=== PATIENT | female | born 1950 | race Caucasian/White ===

== ENCOUNTER 2017-10-03 08:00 | Outpatient (CLI) | payer MEDICARE | END 2017-10-03 08:01 | disposition home or self-care (01) | LOC: BICULT 08:00 | PROVIDERS: ATTEND Family Medicine | DX: E04.1 Nontoxic single thyroid nodule (principal) | CPT/HCPCS: 76536 ==

== ENCOUNTER 2018-01-30 14:28 | Outpatient (CLI) | payer MEDICARE | END 2018-01-30 14:29 | disposition home or self-care (01) | LOC: BICMAMMO 14:28 | PROVIDERS: ATTEND Family Medicine | DX: Z12.31 Encounter for screening mammogram for malignant neoplasm of breast (principal); R92.1 Mammographic calcification found on diagnostic imaging of breast; Z80.3 Family history of malignant neoplasm of breast | CPT/HCPCS: 77063; 77067 ==

== ENCOUNTER 2018-02-03 06:54 | Day surgery (SDC) | payer MEDICARE ==
[2018-02-02 14:27] VITALS: BMI 26.2
--- NOTE | 2018-02-02 23:45 | HP ---
SHORT STAY HISTORY AND PHYSICAL DATE OF ADMISSION: 02/03/2018 HISTORY OF PRESENT ILLNESS: This is a 67-year-old female, who comes for a colonoscopy for colon [facility] [place] [facility] screening. The patient has no specific GI symptoms. She has no family history of colon cancer. ALLERGIES: NIACIN. SOCIAL HISTORY: The patient does not smoke, but drinks alcohol socially. MEDICAL ILLNESSES: 1. Chronic anxiety - panic attacks. 2. Hyperlipidemia. 3. Hypothyroidism. 4. Osteoarthritis. 5. Osteoporosis. 6. Left ovarian cyst removal. PHYSICAL EXAMINATION: VITAL SIGNS: Pulse is 70, blood pressure 130/80. HEENT: Conjunctivae clear. CARDIOVASCULAR SYSTEM AND LUNGS: Within normal limits. ABDOMEN: Soft to palpate. No organomegaly. No tenderness. No masses. ADMITTING DIAGNOSIS: Colon cancer screening. PLAN: Colonoscopy.
--- NOTE | 2018-02-03 11:14 | OP ---
DATE OF PROCEDURE: 02/03/2018 SURGEON: Frandy Davies M.D. OPERATIVE PROCEDURE: Colonoscopy with biopsy. PREOPERATIVE DIAGNOSIS: The patient is a 67-year-old female comes for a colonoscopy for co candido cancer screening. POSTOPERATIVE DIAGNOSES: 1. Mild sigmoid diverticular disease. 2. Sessile polyp descending colon. 3. Small hemorrhoids. 4. Markedly tortuous, redundant colon. PROCEDURE NOTE: The patient was placed on her left lateral position and was given sedation by Anesth esia Department. A rectal exam was done before the scope was advanced into the rectum. No lesion fe lt on rectal exam. A Pentax video colonoscope was introduced into the rectum and advanced all the wa y into the cecum. The colon was very tortuous and redundant. Abdominal compression was used to adva nce the scope all the way to the cecum. The prep was excellent. The mucosa appeared normal. The ap pendiceal orifice, ileocecal valve, no pathology seen. The ascending colon, hepatic flexure, no path ology seen. The transverse colon, no lesions. She had small sessile polyps appeared to be hyperplas tic over the descending colon, these were biopsied. The sigmoid colon showed mild diverticular diseas e. Rectum showed small hemorrhoids. DISCHARGE PLANNING: This is a 67-year-old female who came for a colonoscopy for colon canc er screening. She underwent biopsy. DISCHARGE RECOMMENDATIONS: 1. The patient advised to call me if she develops abdominal pain, hematochezia. 2. In the absence of any of these symptoms she is to come back to me in 2 weeks.
[2018-02-03] MEDS ORDERED: Lidocaine 1% PF 5 ML VIAL ONE (14:07)
[2018-02-03] MEDS ORDERED: PROPOFOL 200 MG/20 ML VIAL ONE (14:07)
== END 2018-02-03 10:20 | disposition home or self-care (01) ==
LOC: SDC 06:54
PROVIDERS: ATTEND Internal Medicine Gastroenterology
PROC: 0DBM8ZX Excision of Descending Colon, Via Natural or Artificial Opening Endoscopic, Diagnostic (ICD-10-PCS; principal; 2018-02-03)
DX: Z12.11 Encounter for screening for malignant neoplasm of colon (principal); K63.5 Polyp of colon; K57.30 Diverticulosis of large intestine without perforation or abscess without bleeding; K64.9 Unspecified hemorrhoids; F41.0 Panic disorder [episodic paroxysmal anxiety]; E78.5 Hyperlipidemia, unspecified; E03.9 Hypothyroidism, unspecified; M19.90 Unspecified osteoarthritis, unspecified site; M81.0 Age-related osteoporosis without current pathological fracture; Z88.8 Allergy status to other drugs, medicaments and biological substances
CPT/HCPCS: 88305; J2001; J2704

== ENCOUNTER 2019-10-08 09:36 | Outpatient (CLI) | payer MEDICARE ==
--- NOTE | 2019-10-08 10:53 | RAD ---
Exam:AP weightbearing view of the left and right knee, lateral right knee radiograph, lateral left kn ee radiograph HISTORY: Chronic pain, x6 months COMPARISON: None FINDINGS: Right knee: Moderate loss of the joint space height in the medial compartment. No fracture or malalignment. No joint effusion Left knee: Preserved joint spaces. No fracture or malalignment. No joint effusion. IMPRESSION: Moderate loss of joint space height in the medial compartment right knee.
== END 2019-10-08 09:37 | disposition home or self-care (01) ==
LOC: BICRAD 09:36
PROVIDERS: ATTEND Family Medicine
DX: G89.29 Other chronic pain (principal)
CPT/HCPCS: 73565

== ENCOUNTER 2019-10-20 09:51 | Outpatient (CLI) | payer MEDICARE ==
--- NOTE | 2019-10-20 10:40 | MMO ---
Bilateral MAMMO Bilat Screen [facility]. CLINICAL HISTORY: Patient is 69 years old and is seen for screening. The patient has the following family history of breast cancer: cousin female and cousin female. The patient has no personal history of cancer. VIEWS: The views performed were: bilateral craniocaudal with tomosynthesis and bilateral mediolateral oblique with tomosynthesis. FILMS COMPARED: The present examination has been compared to prior imaging studies performed at [facility] on 05/06/2012, 07/01/2014, 12/26/2016 and 01/30/2018. This study has been interpreted with the assistance of computer-aided detection. MAMMOGRAM FINDINGS: There are scattered fibroglandular densities. There are stable benign appearing calcifications seen in both breasts. There are no suspicious masses, suspicious calcifications, or new areas of architectural distortion. IMPRESSION: THERE IS NO MAMMOGRAPHIC EVIDENCE OF MALIGNANCY. A ROUTINE FOLLOW-UP MAMMOGRAM IN 1 YEAR IS RECOMMENDED. THE RESULTS OF THIS EXAM WERE SENT TO THE PATIENT. ACR BI-RADS Category 2 - Benign finding MAMMOGRAPHY NOTE: 1. A negative mammogram report should not delay a biopsy if a dominant of clinically suspicious mass is present. 2. Approximately 10% to 15% of breast cancers are not detected by mammography. 3. Adenosis and dense breasts may obscure an underlying neoplasm. Reported by: RAIN STYLES MD Electonically Signed: [id number]
== END 2019-10-20 09:52 | disposition home or self-care (01) ==
LOC: BICMAMMO 09:51
PROVIDERS: ATTEND Family Medicine
DX: Z12.31 Encounter for screening mammogram for malignant neoplasm of breast (principal); Z80.3 Family history of malignant neoplasm of breast
CPT/HCPCS: 77063; 77067

== ENCOUNTER 2022-05-01 08:31 | Outpatient (CLI) | payer MEDICARE | END 2022-05-01 08:32 | disposition home or self-care (01) | LOC: BICMAMMO 08:31 | PROVIDERS: ATTEND Family Medicine | DX: Z12.31 Encounter for screening mammogram for malignant neoplasm of breast (principal); Z13.820 Encounter for screening for osteoporosis; N95.9 Unspecified menopausal and perimenopausal disorder; Z80.3 Family history of malignant neoplasm of breast | CPT/HCPCS: 77063; 77067; 77080 ==

== ENCOUNTER 2022-06-19 15:42 | Observation (INO) | payer MEDICARE ==
[2022-06-19] MEDS ORDERED: diphenhydrAMINE 50 MG/ML VIAL ONE (16:54)
[2022-06-19] MEDS ORDERED: Famotidine/PF 20 mg/2ml Vial ONE (16:54)
[2022-06-19 17:04] LABS: #Eosinphils 0.3 thou/uL (0.0-0.7); #Lymphocytes 1.2 thou/uL (1.20-3.40); #Monocytes 0.2 thou/uL (0.11-0.59); #Neutrophils 3.9 thou/uL (1.40-6.50); %Basophils 0.4 % (0.0-1.0); %Lymphocytes 21.2 % (21.0-51.0); %Monocytes 4.2 % (0.0-10.0); %Neutrophils 69.3 % (42.0-75.0); Hemoglobin 13.8 g/dL (12.0-16.0); Mean Corpuscular HGB CONC 32.4 g/dL (32.0-36.0); Mean Corpuscular Hemoglobin 31.8 pg (27.0-31.0); Mean Corpuscular Volume 98.2 fL (78.0-98.0); Mean Platelet Volume 9.2 fL (7.4-10.4); Platelet Count 134 thou/uL (130-400); RBC Distribution Width 12.3 % (11.5-14.5); Red Blood Cell (RBC) Count 4.35 mill/uL (4.20-5.40); White Blood Cell (WBC) Count 5.6 thou/uL (4.8-10.8)
[2022-06-19 17:24] LABS: Bilirubin Negative (Negative); Blood, Urine Negative (Negative); Clarity Clear (Clear); Glucose, Urine (Dipstick) Normal (Negative); Ketone, Urine Negative (Negative); Leukocyte Negative Leu/uL (Negative); Nitrite Negative (Negative); Protein, Urine (Dipstick) Negative (Neg-Trace); Specific Gravity, Urine 1.011 (1.002-1.036); Urobilinogen Normal mg/dL (Less than 2)
[2022-06-19 17:26] LABS: ALT (SGPT) 29 U/L (8-55); AST (SGOT) 26 U/L (5-34); Albumin 4.2 g/dL (3.4-4.8); Alkaline Phosphatase 86 U/L (40-110); Anion Gap 13 mmol/L (10-20); BUN (Urea Nitrogen) 19 mg/dL (9.8-20.1); Bilirubin, Total 0.7 mg/dL (0.2-1.2); Calc. Creatinine Clearance 0 mL/min (70-130); Calcium 9.7 mg/dL (7.8-10.44); Carbon Dioxide 24 mmol/L (23-31); Chloride 97 mmol/L (98-107); Estimated GFR 52; Globulin 3.3 g/dL (2.4-3.5); Glucose 115 mg/dL (83-110); Potassium 3.8 mmol/L (3.5-5.1); Protein, Total 7.5 g/dL (5.8-8.1); Sodium 130 mmol/L (136-145)
[2022-06-19] MEDS ORDERED: Dexamethasone 10 MG/ML VIAL ONE (17:43)
[2022-06-19] MEDS ORDERED: Ondansetron PF 4 MG/2 ML Vial IVP PRN (18:19)
[2022-06-19] MEDS ORDERED: Bisacodyl 5 MG TAB PO PRN (18:19)
[2022-06-19] MEDS ORDERED: Ondansetron ODT 4 MG TAB PO PRN (18:19)
[2022-06-19] MEDS ORDERED: Senokot S 8.6-50 MG TAB PO PRN (18:19)
[2022-06-19 19:36] VITALS: BMI 27.8
[2022-06-19] MEDS: diphenhydrAMINE 50 MG in Sodium Chloride 0.9% 50 ML IVPB SCH (20:52)
[2022-06-19] MEDS: Sodium Chloride 0.9% 1,000 ML IV SCH (20:53)
[2022-06-19] MEDS: Dexamethasone 10 MG in Sodium Chloride 0.9% 50 ML IVPB SCH (20:53)
[2022-06-19] MEDS: Famotidine/PF 20 mg/2ml Vial SLOW IVP SCH (20:54)
[2022-06-19] MEDS ORDERED: Acetaminophen 500 MG TAB PO PRN (21:09)
[2022-06-20 00:19] LABS: SARS-CoV-2 NAA Rapid Test Not Detected (NotDetected)
[2022-06-20 05:58] LABS: #Lymphocytes 0.6 thou/uL (1.20-3.40); %Basophils 0.7 % (0.0-1.0); %Eosinophils 0.5 % (0.0-10.0); %Lymphocytes 9.8 % (21.0-51.0); %Monocytes 0.7 % (0.0-10.0); %Neutrophils 88.3 % (42.0-75.0); Hemoglobin 12.8 g/dL (12.0-16.0); Mean Corpuscular HGB CONC 32.1 g/dL (32.0-36.0); Mean Corpuscular Hemoglobin 31.6 pg (27.0-31.0); Mean Corpuscular Volume 98.6 fL (78.0-98.0); Mean Platelet Volume 9.1 fL (7.4-10.4); Platelet Count 127 thou/uL (130-400); RBC Distribution Width 12.3 % (11.5-14.5); Red Blood Cell (RBC) Count 4.04 mill/uL (4.20-5.40); White Blood Cell (WBC) Count 5.6 thou/uL (4.8-10.8)
[2022-06-20 06:23] LABS: ALT (SGPT) 25 U/L (8-55); AST (SGOT) 25 U/L (5-34); Albumin 3.8 g/dL (3.4-4.8); Alkaline Phosphatase 76 U/L (40-110); Anion Gap 14 mmol/L (10-20); BUN (Urea Nitrogen) 17 mg/dL (9.8-20.1); Bilirubin, Total 0.5 mg/dL (0.2-1.2); Calc. Creatinine Clearance 73 mL/min (70-130); Calcium 8.9 mg/dL (7.8-10.44); Carbon Dioxide 23 mmol/L (23-31); Chloride 99 mmol/L (98-107); Estimated GFR 69; Globulin 3.3 g/dL (2.4-3.5); Glucose 180 mg/dL (83-110); Protein, Total 7.1 g/dL (5.8-8.1); Sodium 132 mmol/L (136-145)
[2022-06-20] MEDS: Famotidine/PF 20 mg/2ml Vial SLOW IVP SCH (08:33)
[2022-06-20] MEDS: Sodium Chloride 0.9% 1,000 ML IV SCH (08:33)
[2022-06-20] MEDS ORDERED: BIMATOPROST EA EYE SCH (09:00)
[2022-06-20] MEDS ORDERED: BOT EA EYE SCH (09:00)
[2022-06-20] MEDS ORDERED: Enoxaparin Sodium 40 MG/0.4 ML SYRINGE SC SCH (09:00)
[2022-06-20] MEDS ORDERED: Latanoprost 0.005% Ophth Soln 2.5 ml Bottle EA EYE SCH (09:00)
[2022-06-20] MEDS ORDERED: Dexamethasone 10 MG/ML VIAL SLOW IVP SCH (09:00)
[2022-06-20] MEDS: Dexamethasone 10 MG in Sodium Chloride 0.9% 50 ML IVPB SCH (09:47)
[2022-06-20] MEDS: diphenhydrAMINE 50 MG in Sodium Chloride 0.9% 50 ML IVPB SCH (09:47)
[2022-06-20 11:35] VITALS: BP 139/64; TEMP 97.9
[2022-06-20] MEDS ORDERED: Atorvastatin Calcium 10 MG TAB PO SCH (21:00)
[2022-06-21] MEDS ORDERED: Levothyroxine Sodium 50 MCG TAB PO SCH (06:00)
[2022-06-21] MEDS ORDERED: LOVASTATIN 20 MG PO SCH (21:00)
== END 2022-06-20 15:31 | disposition home or self-care (01) ==
LOC: ERS 15:42 → T4-B 17:59
PROVIDERS: ADMIT Internal Medicine; ATTEND Internal Medicine
DX: L27.0 Generalized skin eruption due to drugs and medicaments taken internally (principal); N17.9 Acute kidney failure, unspecified; E03.9 Hypothyroidism, unspecified; E78.5 Hyperlipidemia, unspecified; E87.1 Hypo-osmolality and hyponatremia; N18.2 Chronic kidney disease, stage 2 (mild); D75.89 Other specified diseases of blood and blood-forming organs; Z20.822 Contact with and (suspected) exposure to COVID-19; Z79.890 Hormone replacement therapy; Z79.899 Other long term (current) drug therapy; Z88.2 Allergy status to sulfonamides; Z88.8 Allergy status to other drugs, medicaments and biological substances; Z91.038 Other insect allergy status
CPT/HCPCS: 0240U; 80053 ×2; 81003; 82550; 83605; 83935; 84300; 85025 ×2; 87040; 36415; 96372; 96374; 96375; 96376; G0378; J1100; J1200; J1650; J7050; S0028

== ENCOUNTER 2023-06-26 13:50 | Outpatient (CLI) | payer MEDICARE | END 2023-06-26 13:51 | disposition home or self-care (01) | LOC: BICMAMMO 13:50 | PROVIDERS: ATTEND Family Medicine | DX: Z12.31 Encounter for screening mammogram for malignant neoplasm of breast (principal); Z80.3 Family history of malignant neoplasm of breast | CPT/HCPCS: 77063; 77067 ==

== ENCOUNTER 2024-09-02 15:45 | Outpatient (CLI) | payer MEDICARE | END 2024-09-02 15:46 | disposition home or self-care (01) | LOC: BICRAD 15:45 | PROVIDERS: ATTEND Family Medicine | DX: M41.35 Thoracogenic scoliosis, thoracolumbar region (principal); M47.816 Spondylosis without myelopathy or radiculopathy, lumbar region | CPT/HCPCS: 72070; 72100 ==

== ENCOUNTER 2024-10-18 14:51 | Outpatient (CLI) | payer MEDICARE | END 2024-10-18 14:52 | disposition home or self-care (01) | LOC: BICMAMMO 14:51 | PROVIDERS: ATTEND Family Medicine | DX: Z12.31 Encounter for screening mammogram for malignant neoplasm of breast (principal); Z80.3 Family history of malignant neoplasm of breast | CPT/HCPCS: 77063; 77067 ==